=== PATIENT | male | born 1980 | race African-American/Black ===

== ENCOUNTER 2020-07-14 20:31 | Emergency (ER) | payer SELFPAY ==
[~2020-07-14] VITALS: Wt 62.6 kg
[2020-07-14] MEDS ORDERED: VIBRAMYCIN100 MG PO (20:47)
== END 2020-07-14 21:08 | disposition home or self-care (01) ==
LOC: ED 20:31
DX: T78.40XA Allergy, unspecified, initial encounter (principal); X58.XXXA Exposure to other specified factors, initial encounter

== ENCOUNTER 2020-07-24 23:35 | Emergency (ER) | payer SELFPAY ==
[~2020-07-24] VITALS: Ht 175.2 cm; Wt 63.5 kg
[~2020-07-24 23:35] MED LIST: VIBRAMYCIN100 MG PO
[2020-07-25] MEDS ORDERED: ATARAX,VISTARIL50 MG PO (01:37)
== END 2020-07-25 01:51 | disposition home or self-care (01) ==
LOC: ED 23:35
DX: T78.40XA Allergy, unspecified, initial encounter (principal); Z79.899 Other long term (current) drug therapy; X58.XXXA Exposure to other specified factors, initial encounter